=== PATIENT | female | born 1930 | race Caucasian/White ===

== ENCOUNTER 2017-06-06 10:17 | Outpatient (RCR) | payer MEDICARE, MEDICAID | END 2017-07-03 | disposition home or self-care (01) | LOC: WCC 10:17 | DX: I87.2 Venous insufficiency (chronic) (peripheral) (principal); L29.9 Pruritus, unspecified; I10 Essential (primary) hypertension; E78.5 Hyperlipidemia, unspecified; Z85.3 Personal history of malignant neoplasm of breast; Z86.718 Personal history of other venous thrombosis and embolism | CPT/HCPCS: G0463 ==

== ENCOUNTER 2017-06-06 12:30 | Outpatient (CLI) | payer MEDICARE, MEDICAID ==
--- NOTE | 2017-06-07 10:40 | Diagnostic Imaging Report ---
APPROVED REPORT CPT Code: 89545 Present Symptoms Comments: R/O Venous Insufficiency VENOUS INSUFFICIENCY: SUPERFICIAL VENOUS SYSTEM: Imaging reveals venous insufficiency in the Greater Saphenous vein (GSV) at the right and left proximal, mid-thigh to knee level and also the Short Saphenous Vein (SSV) into the popliteal vein into the popliteal fossa. Reflux lasted longer than 0.5 seconds, bilaterally. DEEP VENOUS SYSTEM: RIGHT LEG: Venous imaging reveals recanalized chronic thrombus in the superficial femoral vein. The remainder of the deep venous system is within normal limits. Imaging reveals venous insufficiency in the deep venous system. Reflux lasted longer than 0.5 second. LEFT LEG: Venous imaging reveals a patent deep venous system. There is no evidence of thrombus within the femoral, popliteal or tibial segments. Imaging reveals venous insufficiency in the deep venous system. Reflux lasted longer than 0.5 second.
== END 2017-06-06 14:30 | disposition home or self-care (01) ==
LOC: VAS 12:30
DX: I82.511 Chronic embolism and thrombosis of right femoral vein (principal)
CPT/HCPCS: 93970